=== PATIENT | female | born 1990 | race African-American/Black ===

== ENCOUNTER 2022-03-17 23:09 | Inpatient (IN) | payer MEDICAID, OTHER ==
[~2022-03-17] VITALS: Ht 157.5 cm; Wt 108.9 kg
[2022-03-17] MEDS: LACTATED RINGERS 1,000 ML IV SCH (23:45)
[2022-03-18] MEDS ORDERED: OXYTOCIN 30 UNITS/500ML NS PMX 500 ML IV SCH
[2022-03-18] MEDS ORDERED: NIFEDIPINE 10MG CAPSULE PO ONE
[2022-03-18] MEDS ORDERED: CARBOPROST TROMETHAMINE 250 MCG/ML AMPUL IM PRN
[2022-03-18] MEDS ORDERED: NALOXONE HCL 0.4 MG/ML 1ML VIAL IM PRN
[2022-03-18] MEDS ORDERED: MISOPROSTOL 100MCG TABLET VG SCH
[2022-03-18] MEDS ORDERED: NIFEDIPINE XL 30MG TAB PO NR ×3 (00:15→18:30)
[2022-03-18 00:47] LABS: CLARITY URINE CLEAR (CLEAR); COLOR URINE YELLOW (YELLOW); KETONES URINE TRACE (NEGATIVE); LEUKOCYTE ESTERASE URINE NEGATIVE (NEGATIVE); NITRITE URINE NEGATIVE (NEGATIVE); OCCULT BLOOD URINE 2+ (NEGATIVE); PROTEIN URINE 4+ (NEGATIVE); SPECIFIC GRAVITY URINE 1.028 (1.005-1.030); UROBILINOGEN URINE 0.2 E.U./dL (0.2-1.0)
[2022-03-18 00:51] LABS: BASOPHILS % 0.5 % (0.0-2.0); HEMATOCRIT. 36.2 % (36.0-48.0); HEMOGLOBIN. 11.6 g/dL (12.0-16.0); LYMPHOCYTES % 21.8 % (20.0-50.0); MEAN CORPUSCULAR HEMOGLOBIN 23.7 pg (28.0-32.0); MEAN CORPUSCULAR VOLUME 73.9 fL (81.0-99.0); MEAN PLATELET VOLUME 11.4 fl (7.4-10.4); MONOCYTES % 10.2 % (2.0-8.0); NEUTROPHILS % 66.5 % (40.0-76.0); PLATELET 192 x1000/uL (130-400); RED CELL DISTRIBUTION WIDTH 17.4 % (11.6-14.6)
[2022-03-18 00:54] LABS: CHLORIDE 107 mEq/L (98-107)
[2022-03-18 01:11] LABS: *AMPHETAMINES SCREEN URINE NEGATIVE (NEGATIVE); *BARBITURATES SCREEN URINE NEGATIVE (NEGATIVE); *BENZODIAZEPINES SCREEN URINE NEGATIVE (NEGATIVE); *COCAINE SCREEN URINE NEGATIVE (NEGATIVE); CANNABINOID URINE SCREEN NEGATIVE (NEGATIVE); METHADONE URINE SCREEN NEGATIVE (NEGATIVE); OPIATES URINE SCREEN NEGATIVE (NEGATIVE); PHENCYCLIDINE URINE SCREEN NEGATIVE (NEGATIVE)
[2022-03-18 01:24] LABS: HEPATITIS B SURFACE ANTIGEN NEGATIVE
[2022-03-18] MEDS ORDERED: HYDRALAZINE 20MG/ML VIAL IV PRN ×2 (01:45)
[2022-03-18] MEDS ORDERED: MAGNESIUM 4 G PREMIX 100 ML IV SCH (01:45)
[2022-03-18] MEDS: BETAMETHASONE ACET/BETAMET 30 MG/5 ML VIAL IM SCH (02:17)
[2022-03-18] MEDS: MAGNESIUM 20 G PREMIX (L & D) 500 ML IV SCH ×2 (02:28→12:50)
[2022-03-18] MEDS: HYDRALAZINE 20MG/ML VIAL IV PRN ×2 (02:51→03:55)
[2022-03-18 03:38] LABS: D-DIMER 1.89 mg/L FEU (<0.50); INR 0.9; PROTHROMBIN TIME 9.6 sec (9.6-11.0)
[2022-03-18] MEDS: LACTATED RINGERS 1,000 ML IV SCH ×2 (12:05→21:16)
[2022-03-19] MEDS ORDERED: NIFEDIPINE 10MG CAPSULE PO NR ×2 (00:30→19:40)
[2022-03-19] MEDS ORDERED: NIFEDIPINE XL 30MG TAB PO NR (01:15)
[2022-03-19] MEDS: BETAMETHASONE ACET/BETAMET 30 MG/5 ML VIAL IM SCH (01:35)
[2022-03-19] MEDS: MAGNESIUM 20 G PREMIX (L & D) 500 ML IV SCH (03:59)
[2022-03-19] MEDS: LACTATED RINGERS 1,000 ML IV SCH (06:10)
[2022-03-19 09:37] LABS: CLARITY URINE CLEAR (CLEAR); COLOR URINE YELLOW (YELLOW); KETONES URINE NEGATIVE (NEGATIVE); LEUKOCYTE ESTERASE URINE NEGATIVE (NEGATIVE); NITRITE URINE NEGATIVE (NEGATIVE); OCCULT BLOOD URINE 1+ (NEGATIVE); PH URINE 5.5 (4.5-8.0); PROTEIN URINE 3+ (NEGATIVE); SPECIFIC GRAVITY URINE 1.016 (1.005-1.030); UROBILINOGEN URINE 0.2 E.U./dL (0.2-1.0)
[2022-03-19 09:38] LABS: HEMATOCRIT. 41.6 % (36.0-48.0); HEMOGLOBIN. 13.1 g/dL (12.0-16.0); MEAN CORPUSCULAR HEMOGLOBIN 23.5 pg (28.0-32.0); MEAN CORPUSCULAR VOLUME 74.9 fL (81.0-99.0); MEAN PLATELET VOLUME 11.2 fl (7.4-10.4); PLATELET 239 x1000/uL (130-400); RED BLOOD CELL COUNT 5.56 mill/uL (4.2-5.4); RED CELL DISTRIBUTION WIDTH 17.9 % (11.6-14.6)
[2022-03-19 09:45] LABS: CHLORIDE 100 mEq/L (98-107)
[2022-03-19 15:43] LABS: D-DIMER 0.8 mg/L FEU (<0.50); INR 0.9; PARTIAL THROMBOPLASTIN TIME 28.2 sec (23.4-31.0); PROTHROMBIN TIME 9.3 sec (9.6-11.0)
[2022-03-19 16:08] LABS: PLATELET ESTIMATE NORMAL
[2022-03-19] MEDS: DOCUSATE SODIUM 100MG CAPSULE PO SCH (17:00)
[2022-03-19] MEDS ORDERED: NIFEDIPINE 10MG CAPSULE PO STA (19:46)
[2022-03-20] MEDS: LACTATED RINGERS 1,000 ML IV SCH (00:48)
[2022-03-20] MEDS ORDERED: NIFEDIPINE 10MG CAPSULE PO NR ×2 (01:39→08:00)
[2022-03-20] MEDS ORDERED: NIFEDIPINE 10MG CAPSULE PO ONE (01:45)
[2022-03-20] MEDS: LABETALOL HCL 200MG TABLET PO SCH ×2 (06:09→18:04)
[2022-03-20] MEDS ORDERED: LABETALOL 5MG/ML SYR 20 MG/4 ML SYRINGE IV NR (06:38)
[2022-03-20] MEDS ORDERED: LABETALOL HCL 5MG/ML VIAL 20ML IV NR (07:00)
[2022-03-20] MEDS: DOCUSATE SODIUM 100MG CAPSULE PO SCH (09:56)
[2022-03-20] MEDS: NIFEDIPINE XL 90MG TAB PO SCH (10:41)
[2022-03-20] MEDS ORDERED: LABETALOL HCL VIAL 20 MG/4 ML VIAL IV NR (12:33)
[2022-03-20] MEDS ORDERED: LABETALOL HCL 200MG TABLET PO SCH (16:30)
[2022-03-21] MEDS: LABETALOL HCL 200MG TABLET PO SCH ×2 (06:06→18:04)
[2022-03-21] MEDS: NIFEDIPINE XL 90MG TAB PO SCH (09:02)
[2022-03-21] MEDS: DOCUSATE SODIUM 100MG CAPSULE PO SCH (09:03)
[2022-03-22] MEDS ORDERED: NIFEDIPINE 10MG CAPSULE PO NR (03:30)
[2022-03-22] MEDS ORDERED: LABETALOL HCL 5MG/ML VIAL 20ML IV NR (06:15)
[2022-03-22] MEDS: LABETALOL HCL 200MG TABLET PO SCH ×3 (06:20→22:46)
[2022-03-22 06:41] VITALS: BP 189/119
[2022-03-22 07:53] LABS: D-DIMER 2.16 mg/L FEU (<0.50); INR 0.9; PARTIAL THROMBOPLASTIN TIME 28.4 sec (23.4-31.0); PROTHROMBIN TIME 9.5 sec (9.6-11.0)
[2022-03-22 07:59] LABS: CHLORIDE 105 mEq/L (98-107)
[2022-03-22 08:01] LABS: BASOPHILS % 0.9 % (0.0-2.0); EOSINOPHILS % 0.6 % (0.0-5.0); HEMATOCRIT. 36.4 % (36.0-48.0); HEMOGLOBIN. 11.6 g/dL (12.0-16.0); LYMPHOCYTES % 22.2 % (20.0-50.0); MEAN CORPUSCULAR HEMOGLOBIN 23.4 pg (28.0-32.0); MEAN CORPUSCULAR VOLUME 73.3 fL (81.0-99.0); MEAN PLATELET VOLUME 11.5 fl (7.4-10.4); MONOCYTES % 8.2 % (2.0-8.0); NEUTROPHILS % 68.1 % (40.0-76.0); PLATELET 196 x1000/uL (130-400); RED BLOOD CELL COUNT 4.97 mill/uL (4.2-5.4); RED CELL DISTRIBUTION WIDTH 18.1 % (11.6-14.6)
[2022-03-22] MEDS: NIFEDIPINE XL 90MG TAB PO SCH (08:02)
[2022-03-22] MEDS ORDERED: NIFE-33 PO (16:42)
[2022-03-22] MEDS ORDERED: LABE200T9 PO (16:42)
[2022-03-22] MEDS ORDERED: NIFE90TA60 PO (16:42)
[2022-03-23] MEDS: LABETALOL HCL 200MG TABLET PO SCH ×2 (06:52→14:05)
[2022-03-23] MEDS ORDERED: LABETALOL HCL 200MG TABLET PO SCH (09:00)
[2022-03-23] MEDS: NIFEDIPINE XL 90MG TAB PO SCH (09:01)
[2022-03-23] MEDS: DOCUSATE SODIUM 100MG CAPSULE PO SCH (09:02)
== END 2022-03-23 18:30 | disposition home or self-care (01) | DRG 566 ==
LOC: OBSVTOIN 23:09 → 8 EST LDRP 23:09
PROVIDERS: ADMIT Obstetrics & Gynecology; ATTEND Obstetrics & Gynecology
DX: O16.2 Unspecified maternal hypertension, second trimester (principal); O99.212 Obesity complicating pregnancy, second trimester; Z20.822 Contact with and (suspected) exposure to COVID-19; Z91.19 Patient's noncompliance with other medical treatment and regimen; Z82.49 Family history of ischemic heart disease and other diseases of the circulatory system; Z3A.25 25 weeks gestation of pregnancy
CPT/HCPCS: 36415; 76805; 76815; 76818; 80053; 80305; 81003; 83735; 84550; 85025; 85379; 85384; 86592; 86703; 86762; 86850; 86900; 87340; 87426; G0378; J0360; J0702; J3475; J3490; J7120; A4315